=== PATIENT | male | born 2000 | race Hispanic/Latino ===

== ENCOUNTER 2024-10-05 15:00 | Emergency (ER) | payer OTHER ==
[~2024-10-05] VITALS: Ht 167.6 cm; Wt 68.0 kg
[2024-10-05 15:35] VITALS: PULSE 67; RESP 18; TEMP 98.7; O2SAT 99
[2024-10-05] MEDS ORDERED: CEPHALEXIN500 MG PO (15:44)
== END 2024-10-05 16:35 | disposition home or self-care (01) ==
LOC: FSED 15:06
DX: L60.0 Ingrowing nail (principal)
CPT/HCPCS: 99282